=== PATIENT | female | born 1950 | race Caucasian/White ===

== ENCOUNTER 2016-11-01 11:49 | Emergency (ER) | payer MEDICARE ==
[2016-11-01] MEDS ORDERED: LORazepam 0.5 MG TABLET ONE (12:10)
[2016-11-01] MEDS ORDERED: cloNIDine HCL 0.1 MG TABLET PO ONE ×3 (12:10→13:36)
[2016-11-01 13:23] LABS: BASOPHILS 0.7 % (0.0-2.0); EOSINOPHILS 0.1 % (0.0-6.0); HEMATOCRIT 46.7 % (36.0-48.0); HEMOGLOBIN 16.2 g/dL (12.0-16.0); LYMPHOCYTES 15.6 % (20.0-40.0); LYMPHOCYTES# 1.1 X 10^3uL (0.8-3.8); MEAN CELL VOLUME 88.6 fL (80.0-100.0); MEAN CORPUS. HGB CONCENTRATION 34.8 g/dL (32.0-36.0); MEAN CORPUSCULAR HEMOGLOBIN 30.8 pg (29.0-35.0); MEAN PLATELET VOLUME 7.6 fL (7.4-10.4); MONOCYTES 5.7 % (2.0-10.0); MONOCYTES# 0.4 X 10^3uL (0.2-1.0); NEUTROPHILS 77.9 % (54.0-75.0); NEUTROPHILS# 5.3 X 10^3uL (2.6-6.7); PLATELET COUNT 304 X 10^3uL (130-440); RED BLOOD COUNT 5.27 X 10^6uL (4.20-6.10); RED CELL DISTRIBUTION WIDTH 12.5 % (11.5-14.5); WHITE BLOOD COUNT 6.8 X 10^3uL (3.9-10.7)
[2016-11-01 13:34] LABS: BLOOD UREA NITROGEN 11 mg/dL (7-17); CALCIUM 9.8 mg/dL (8.4-10.2); CHLORIDE 106 mmol/L (98-107); CREATININE 0.9 mg/dL (0.5-1.0); EST GLOMERULAR FILTRATION RATE > 60 mL/min; GLUCOSE 121 mg/dL (70-100); POTASSIUM 3.8 mmol/L (3.5-5.1); SODIUM 144 mmol/L (137-145)
[2016-11-01 13:46] LABS: TROPONIN I < 0.012 ng/mL (0.00-0.034)
--- NOTE | 2016-11-01 16:02 | ER PHYSICIAN DOCUMENTATION ---
Physician Documentation [facility] Name:oRsio Miranda Age:66 yrs Sex:Female :1950 Arrival Date:11/01/2016 Time:11:49 Bed6 Private MD: Armando Ceja Disposition: 11/01/16 14:30 Discharged to Home/Self Care. Impression: Hypertensive Emergency, Hypoxia - : 2nd to High Altitude Illness, Anxiety Reaction, Dehydration. - Condition is Fair. - Discharge Instructions: DEHYDRATION (7y-Adult), HYPERTENSION, New (Begin Tx), Anguish - ANXIETY REACTION. - Prescriptions for Hydrochlorothiazide 25 mg Oral Tablet - take 1 tablet by ORAL route once daily .; 30 tablet. - Medical Reconciliation form form. - Follow up: Private Physician; When: 7 - 10 days; Reason: Recheck today's complaints, Continuance of care. - Problem is new. - Symptoms have improved. - Notes: Drink 2 liters of water or GAtorade every day. Maintain Oxygen at 2 liters per minute 24 hours per day while in [place]. No alcohol or higher elevation. Rest, no exercise or walking. Start HCTZ 25mg by mouth every day. Follow up with your Doctor in [place] for recheck upon returning home...in 7 - 10 days. HPI: 11/01 11:52 This 66 yrs old Female presents to ER via Walk In with complaints of High cd Blood Pressure, Dizziness. 11:52 The patient has elevated blood pressure and discovered this at [facility]. Onset: The symptom(s)/episode began/occurred today. Modifying factors: The symptoms are aggravated by altitude. The patient is from [place] and came to 8,000 ft elevation yesterday. She flew to [facility], then came straight to [place]. She was seen at the [facility] and given a prescription for Diamox for the Altitude Illness and her high BP. She took her first pill 45 minutes ago. She continues to have a headache (Mild), tingling from her chest up and around her mouth. She denies chest pain, SOB, Abdominal pain, nausea or vomiting.. Associated signs and symptoms: Pertinent positives: dizziness, headache, lightheadedness, Pertinent negatives: chest pain, visual changes, vomiting. 11:52 Severity of symptoms: At its worst the blood pressure was severe, 215 mm Hg. The cd patient has not experienced similar symptoms in the past. Historical: - Allergies: No known drug Allergies; - Home Meds: 1. Diamox Sequels Oral 2. Zofran Oral - PMHx: Hypertension; - PSHx: None; - Tetanus: unknown. - Ebola Screening: : Patient negative for fever greater than or equal to 101.5 degrees Fahrenheit, and additional compatible Ebola Virus Disease symptoms. Patient denies exposure to infectious person. Patient denies travel to an Ebola-affected area in the 21 days before illness onset. No symptoms or risks identified at this time. . - Immunization history: Pneumococcal vaccine status is unknown, Flu Vaccine unknown. - Social history: Smoking status: Patient states former smoker of tobacco. ROS: 12:36 Constitutional: Positive for poor PO intake, Negative for chills, fever. cd 12:36 Cardiovascular: Negative for chest pain, edema, palpitations. 12:36 Respiratory: Negative for cough, dyspnea on exertion, hemoptysis, pleurisy, shortness of breath. 12:36 Abdomen/GI: Negative for abdominal pain, nausea, vomiting. 12:36 Neuro: Positive for dizziness, headache, tingling, Negative for loss of consciousness, speech changes, syncope, visual changes. 12:36 All other systems are negative. Exam: 12:36 Head/Face: Normocephalic, atraumatic. cd Eyes: Pupils equal round and reactive to light, extra-ocular motions intact. Lids and lashes normal. Conjunctiva and sclera are non-icteric and not injected. Cornea within normal limits. Periorbital areas with no swelling, redness, or edema. ENT: Nares patent. No nasal discharge, no septal abnormalities noted. Tympanic membranes are normal and external auditory canals are clear. Oropharynx with no redness, swelling, or masses, exudates, or evidence of obstruction, uvula midline. Mucous membranes dry Neck: Trachea midline, no thyromegaly or masses palpated, and no cervical lymphadenopathy. Supple, full range of motion without nuchal rigidity, or vertebral point tenderness. No Meningismus. 12:36 Chest/axilla: Normal chest wall appearance and motion. Nontender with no deformity. cd No lesions are appreciated. Abdomen/GI: Soft, non-tender, with normal bowel sounds. No distension or tympany. No guarding or rebound. No evidence of tenderness throughout. Back: No spinal tenderness. No costovertebral tenderness. Full range of motion. Skin: Warm, dry with normal turgor. Normal color with no rashes, no lesions, and no evidence of cellulitis. 12:36 MS/ Extremity: Pulses equal, no cyanosis. Neurovascular intact. Full, normal range of motion. 12:36 Constitutional: The patient appears alert, awake, non-diaphoretic, non-toxic, well developed, well nourished, anxious, obese, in obvious distress, moderately distressed. 12:36 Cardiovascular: Rate: normal, Rhythm: regular, Pulses: no pulse deficits are appreciated, Heart sounds: normal. 12:36 Respiratory: the patient does not display signs of respiratory distress, Respirations: normal, Breath sounds: are normal, clear throughout. 12:36 Neuro: Orientation: is normal, to person, place & time. Mentation: is normal, Memory: is normal, Cranial nerves: CN II- XII are normal as tested, Motor: is normal, moves all fours, Sensation: is normal. Vital Signs: 11:49 BP 215 / 112 (auto/); Pulse 65; Resp 16; Temp 97.8; Pulse Ox 88% on R/A; Weight 90.72 ke kg; Height 5 ft. 5 in. (165.10 cm); Pain 0/10; 11:52 Pulse Ox 93% ; ke 12:16 BP 192 / 98 (auto/); Pulse 68; Resp 16; Pulse Ox 93% on 2 lpm NC; ke 12:17 Pulse Ox 94% ; ke 12:33 BP 196 / 113 (auto/); ke 12:37 Pulse Ox 92% ; ke 13:05 BP 194 / 104 (auto/); ke 13:07 Pulse Ox 92% ; ke 13:31 BP 175 / 102 (auto/); Pulse 89; Resp 18; Pulse Ox 94% on NC; ke 13:32 Pulse Ox 94% ; ke 13:45 BP 196 / 89 (auto/); Pulse 88; Resp 18; Pulse Ox 2% on NC; ke 13:47 Pulse Ox 95% ; ke 14:15 BP 156 / 92 (auto/); ke 14:17 Pulse Ox 90% ; ke 15:00 BP 184 / 86 (auto/); Pulse 88; Resp 16; Pulse Ox 93% on 2 lpm NC; ke 15:02 Pulse Ox 93% ; ke 16:00 BP 171 / 98; Pulse 85; Resp 18; Pulse Ox 93% on 2 lpm NC; ke 11:49 Body Mass Index 33.28 (90.72 kg, 165.10 cm) ke 11:49 placed on NC O2 at 2 lpm ke [place] Coma Score: 12:36 Eye Response: spontaneous(4). Verbal Response: oriented(5). Motor Response: obeys cd commands(6). Total: 15. MDM: 12:00 Patient medically screened. cd 12:15 Differential diagnosis: hypertensive crisis, Malignant HTN, Dehydration, High Altitude cd Illness, Hypoxia. Data reviewed: vital signs, nurses notes, old medical records, and as a result, I will continue to observe the patient, administer IV fluids, NS bolus, Clonidine to bring down her BP. Ativan for anxiety. IVF for hydration. I will check an EKG, CXR and labwork.. 12:30 Data interpreted: Pulse oximetry: on room air is 88 %. Interpretation: hypoxia. Plan: cd O2 by NC applied. 14:30 Counseling: I had a detailed discussion with the patient and/or guardian regarding: the cd historical points, exam findings, and any diagnostic results supporting the discharge/admit diagnosis, lab results, radiology results, the need for outpatient follow up, for a recheck, with the patient's primary care provider, to return to the emergency department if symptoms worsen or persist or if there are any questions or concerns that arise at home. 15:45 Response to treatment: the patient's symptoms have markedly improved after treatment, cd the patient's condition has returned to base line, patient is well hydrated. and as a result, I will discharge patient. 15:45 Special discussion: I discussed with the patient/guardian in detail that at this point cd there is no indication for admission to the hospital. It is understood, however, that if the symptoms persist or worsen the patient needs to return immediately for re-evaluation. 11/01 13:30 Order name: CBC AUTO DIF, MDIF/RMOR IF IND; Complete Time: 13:53 EDMS 11/01 13:36 Interpretation: Normal. cd 11/01 13:44 Order name: DDIMER; Complete Time: 13:53 EDMS 11/01 13:45 Interpretation: Normal. cd 11/01 13:47 Order name: BASIC METABOLIC PANEL; Complete Time: 13:53 EDMS 11/01 13:53 Interpretation: Normal. 11/01 13:47 Order name: TROPONIN I; Complete Time: 13:53 EDMS 11/01 13:53 Interpretation: Normal. 11/01 13:26 Order name: CHEST; SINGLE VIEW [id number]; Complete Time: 15:57 EDMS 11/03 15:57 Interpretation: Normal. 11/01 17:10 Order name: CXR 2V [id number]; Complete Time: 15:57 EDMS 11/03 15:57 Interpretation: Normal Except: See Report. 11/01 12:01 Order name: Fluid Challenge; Complete Time: 12:12 cd 11/01 12:41 Order name: Oxygen; Complete Time: 13:17 ke 11/01 13:07 Order name: Iv Saline Lock; Complete Time: 13:17 cd 11/01 13:08 Order name: EKG - 12 Lead; Complete Time: 13:32 cd 11/01 14:25 Order name: Oxygen: Call [employer] or [facility] ; Complete Time: 14:58 cd Dispensed Medications: 12:00 Drug: cloNIDine 0.1 mg; Route: PO; ke 14:10 Follow up: Response: Blood pressure is lowered ke 12:00 Drug: Ativan 0.5 mg; Route: PO; ke 12:31 Follow up: Response: Anxiety decreased ke 13:18 Drug: cloNIDine 0.1 mg; Route: PO; ke 14:10 Follow up: Response: Blood pressure is lowered ke 14:37 Drug: NS 0.9% 500 ml; Route: IV; Rate: bolus; Site: right antecubital; ke 15:31 Follow up: IV Status: Completed infusion; Infusion discontinued; IV Intake: 500ml ke Signatures: Armando Correa MD MD cd Evens, Kerry RN RN ke
--- NOTE | 2016-11-01 16:02 | ER NURSING DOCUMENTATION ---
Nurse's Notes [facility] Name:Rosio Miranda Age:66 yrs Sex:Female :1950 Arrival Date:11/01/2016 Time:11:49 Bed6 Private MD: Diagnosis:Hypertensive Emergency;Hypoxia-: 2nd to High Altitude Illness;Anxiety Reaction;Dehydration Presentation: 11/01 11:50 Presenting complaint: Patient states: Pt. is visiting from [place] and states that she has ke been lightheaded, tired, dry mouth. She was seen at clinic today and given 2 prescriptions - she took the Diamox about 45 min. UNDER CUTTER and began to feel tingly from the waist up and had numbness around the mouth shortly after. She was hypertensive at the clinic. She has had a recent 20# weight gain. Transition of care: Home. Notified ED Physician of patient's arrival and CC Dr. Correa notified. 11:50 Method Of Arrival: Walk In 11:56 Acuity: SUMAN 3 ke Triage Assessment: 12:38 General: Appears uncomfortable, well developed, well nourished, well groomed, Behavior ke is anxious, cooperative, pleasant, quiet. Pain: Denies pain. EENT: Oral mucosa is dry. Neuro: Level of Consciousness is awake, alert, Oriented to person, place, time, event, Moves all extremities. Facial symmetry appears normal. Cardiovascular: Capillary refill is brisk Heart tones S1 S2 present Pulses are all present. Respiratory: Airway is patent Trachea midline Breath sounds are clear bilaterally. GI: Abdomen is non- distended Bowel sounds present X 4 quads. Abd is soft and non tender X 4 quads. : No deficits noted. Derm: No deficits noted. Musculoskeletal: No deficits noted. Historical: - Allergies: No known drug Allergies; - Home Meds: 1. Diamox Sequels Oral 2. Zofran Oral - PMHx: Hypertension; - PSHx: None; - Tetanus: unknown. - Ebola Screening: : Patient negative for fever greater than or equal to 101.5 degrees Fahrenheit, and additional compatible Ebola Virus Disease symptoms. Patient denies exposure to infectious person. Patient denies travel to an Ebola-affected area in the 21 days before illness onset. No symptoms or risks identified at this time. . - Immunization history: Pneumococcal vaccine status is unknown, Flu Vaccine unknown. - Social history: Smoking status: Patient states former smoker of tobacco. Screenin:40 Infectious Disease Risk None. Abuse screen: Denies threats or abuse. Denies injuries ke from another. Nutritional screening: No deficits noted. Assessment: 12:40 See Triage Assessment done by same RN. ke 15:58 Reassessment: Pt. has consistently desaturated into the 80's when removed from O2. Pt. ashwin will be DC home for short ride to her friends house where she will meet [facility] for home O2 set up. Dr. Correa approved for pt. to be on [place] for short ride to the house. Pt. still feeling slightly tingly, but overall feeling better.. Vital Signs: 11:49 BP 215 / 112 (auto/); Pulse 65; Resp 16; Temp 97.8; Pulse Ox 88% on R/A; Weight 90.72 ke kg; Height 5 ft. 5 in. (165.10 cm); Pain 0/10; 11:52 Pulse Ox 93% ; ke 12:16 BP 192 / 98 (auto/); Pulse 68; Resp 16; Pulse Ox 93% on 2 lpm NC; ke 12:17 Pulse Ox 94% ; ke 12:33 BP 196 / 113 (auto/); ke 12:37 Pulse Ox 92% ; ke 13:05 BP 194 / 104 (auto/); ke 13:07 Pulse Ox 92% ; ke 13:31 BP 175 / 102 (auto/); Pulse 89; Resp 18; Pulse Ox 94% on NC; ke 13:32 Pulse Ox 94% ; ke 13:45 BP 196 / 89 (auto/); Pulse 88; Resp 18; Pulse Ox 2% on NC; ke 13:47 Pulse Ox 95% ; ke 14:15 BP 156 / 92 (auto/); ke 14:17 Pulse Ox 90% ; ke 15:00 BP 184 / 86 (auto/); Pulse 88; Resp 16; Pulse Ox 93% on 2 lpm NC; ke 15:02 Pulse Ox 93% ; ke 16:00 BP 171 / 98; Pulse 85; Resp 18; Pulse Ox 93% on 2 lpm NC; ke 11:49 Body Mass Index 33.28 (90.72 kg, 165.10 cm) ke 11:49 placed on NC O2 at 2 lpm ke [place] Coma Score: 12:36 Eye Response: spontaneous(4). Verbal Response: oriented(5). Motor Response: obeys cd commands(6). Total: 15. ED Course: 11:50 Patient arrived in ED. lr3 11:50 Notified ED Physician of patient's arrival and chief complaint. Dr. Correa notified. ke 11:56 Renata Velasco, RN is Primary Nurse. ke 11:56 Triage completed. ke 12:00 Armando Correa MD is Attending Physician. cd 12:41 Valuables Remains with patient Patient has correct armband on for positive ke identification. Placed in gown. Bed in low position. Call light in reach. Side rails up X 1. 12:41 Oxygen Oxygen administration via nasal cannula @ 2L/min. ke 13:17 Inserted peripheral IV: saline lock: 20 gauge in right antecubital area and blood ke collected. 13:24 Port Xray Completed. ava 13:26 CHEST; SINGLE VIEW [id number] In Process Unspecified. EDMS 14:14 CHEST; SINGLE VIEW [id number] Sent. ava 15:30 Discontinued intact, bleeding controlled, pressure dressing applied, No ke redness/swelling at site. Administered Medications: 12:00 Drug: cloNIDine 0.1 mg; Route: PO; ke 14:10 Follow up: Response: Blood pressure is lowered ke 12:00 Drug: Ativan 0.5 mg; Route: PO; ke 12:31 Follow up: Response: Anxiety decreased ke 13:18 Drug: cloNIDine 0.1 mg; Route: PO; ke 14:10 Follow up: Response: Blood pressure is lowered ke 14:37 Drug: NS 0.9% 500 ml; Route: IV; Rate: bolus; Site: right antecubital; ke 15:31 Follow up: IV Status: Completed infusion; Infusion discontinued; IV Intake: 500ml ke Intake: 15:31 IV: 500ml; Total: 500ml. ke Outcome: 14:30 Discharge ordered by . cd 15:57 Discharged to home via wheelchair. ke 15:57 Condition: improved 15:57 Discharge instructions given to patient, Instructed on discharge instructions, follow up and referral plans. medication usage, no drinking with medication, Home O2 use. Luis will be meeting pt. at house at 1600 today to set up home O2. 16:01 Patient left the ED. ke 11/02 08:17 Discharge F/U Call: Unable to reach: no answer lp Signatures: Dispatcher [employer] Estela Ernandez RN RN lp Daley, Chris, MD MD cd Abbott, Laura lea Evens, Kerry, RN RN ke Roach, Lelia lr3
--- NOTE | 2016-11-01 16:05 | RADIOLOGY REPORT ---
Two views of the chest, without prior films for comparison, demonstrate the heart and vessels to be unremarkable. There are findings consistent with prominent right epicardial fat pad. The lung paredes are otherwise clear. No infiltrate, fluid or pneumothorax is seen. IMPRESSION: Probable prominent right epicardial fat pad. The findings were reviewed with Dr. Correa. BENNETT
== END 2016-11-01 16:02 | disposition home or self-care (01) ==
LOC: ER 11:49
DX: I16.1 Hypertensive emergency (principal); R09.02 Hypoxemia; E86.0 Dehydration; F41.9 Anxiety disorder, unspecified; T70.29XA Other effects of high altitude, initial encounter; R42 Dizziness and giddiness; R51 Headache; Z79.899 Other long term (current) drug therapy
CPT/HCPCS: 71020; 80048; 84484; 85025; 85379; 96360; 99284